=== PATIENT | female | born 1955 | race Caucasian/White ===

== ENCOUNTER 2019-11-12 15:04 | Emergency (ER) | payer MEDICAID ==
[~2019-11-12] VITALS: Ht 165.1 cm; Wt 77.4 kg
[2019-11-12 15:08] VITALS: BP 177/89
[2019-11-12] MEDS ORDERED: TETanus/Pertussis (Acell)/Diphther VAC/PF (Tdap-Adult) 0.5ml syringe IMVAC ONE (16:00)
== END 2019-11-12 16:20 | disposition home or self-care (01) ==
LOC: ER 15:05
DX: S61.217A Laceration without foreign body of left little finger without damage to nail, initial encounter (principal); W26.8XXA Contact with other sharp object(s), not elsewhere classified, initial encounter; Y93.89 Activity, other specified; Y92.89 Other specified places as the place of occurrence of the external cause; Y99.8 Other external cause status
CPT/HCPCS: 90471; 90715; 99283